=== PATIENT | male | born 2005 | race Caucasian/White ===

== ENCOUNTER 2024-11-28 12:53 | Emergency (ER) | payer OTHER, SELFPAY ==
[2024-11-28 12:58] VITALS: BP 142/94; PULSE 60; RESP 18; TEMP 36.8; O2SAT 99; BMI 24.1
--- NOTE | 2024-11-28 13:07 | HMH.EDGENADL ---
Discharge Plan Disposition Patient Disposition: Home, Self-Care Condition: Good Prescriptions Prescriptions: No Action No Known Home Medications Referrals Follow up/Referrals: Provider,Referral, MD [Primary Care Provider] - See instructions Activity Restrictions/Add. Instructions Additional Instructions/Restrictions: You may wash your sutures with soap and water and pat dry. The sutures can come out in 5 days. You can return to the [facility] PCP or the ER for suture removal. If you have increasing redness drainage pain return to the ER for evaluation. Clinical Impressions Clinical Impression: Facial laceration Qualifiers: Encounter type: initial encounter Qualified Code(s): S01.81XA - Laceration without foreign body of other part of head, initial encounter Instructions Patient Instructions: DI for Laceration Repair Print Language Print Language: Belarusian Discharge ED Provider: Avery Dixon General Adult HPI <ANTWON Uriostegui - Last Filed: 11/28/24 21:00> General Chief complaint: Wound/Laceration Stated complaint: AO 11/28 1224 fall hit head/face nose bleed holman Time Seen by Provider: 11/28/24 13:07 Mode of Arrival: Ambulatory Source of Information: Patient Limitations: No Limitations Description of Symptoms (Recalled from ER Triage Doc. by RN): Pt states he fell at home when dancing for his performance when he tripped and hit his nose on the corner of the dresser. Pt has a small laceration to his nose. History of Present Illness HPI narrative: Patient presents for evaluation of a fall and facial trauma. Patient was practicing for a dance performance and tripped falling into the edge of a dresser. He struck himself across the bridge of his nose. He did not lose consciousness did not fall and denies any other injury. He suffered a laceration across the bridge of his nose and reports that he is congested since but denies any epistaxis change in vision headache cervical spine tenderness chest pain shortness of breath fever chills hemoptysis hematochezia melena nausea vomit diarrhea. Related Data Home Medications ?Medication ?Instructions ?Recorded ?Confirmed No Known Home Medications 11/28/24 11/28/24 Allergies Allergy/AdvReac Type Severity Reaction Status Date / Time No Known Allergies Allergy Verified 04/12/18 22:38 PFSH <ANTWON Uriostegui - Last Filed: 11/28/24 21:00> [facility] Disclaimer: The information contained in this section may have been updated after the patient was seen, as this information can be updated by other users. Social History (Updated 11/28/24 @ 21:00 by ANTWON Uriostegui) Smoking Status: Current every day smoker alcohol intake: never current occupational status: unemployed Travel in the last 8 weeks: None Have you lived/traveled outside [place] in past 30 days?: No Contact w/someone who lives/traveled outside [place] past 30 days?: No Exposure to someone with infectious disease in past 14 days?: No Do you have a fever (greater than 100.4 F or 38 C)?: No Have you tested positive for COVID-19: No Exposed to someone with COVID-19 in past 14 days?: No Do you have a sore throat?: No Do you have a cough?: No Do you have any weakness?: No Do you have any diarrhea?: No Are you experiencing any unusual bleeding?: No Do you have any muscle aches/pain?: No Do you have any abdominal pain?: No Are you experiencing loss of taste or smell?: No <ANTWON Uriostegui - Last Filed: 11/28/24 21:00> ROS Obtained: Yes Systems reviewed as appropriate & no additional complaints except as documented Physical Exam <ANTWON Uriostegui - Last Filed: 11/28/24 21:00> General General appearance: alert and in no apparent distress Neck Neck exam: Present lymphadenopathy Respiratory Respiratory exam: Present normal lung sounds bilaterally Cardiovascular Cardiovascular exam: Present regular rate Neurological Exam Neurological exam: Present alert and oriented X3 Medical Decision Making <ANTWON Uriostegui - Last Filed: 11/28/24 21:00> Medical Records Screening: Per USPSTF and CDC recommendations, given the prevalence of disease in our region, it is our hospital?s policy to screen for HIV and viral Hepatitis for all patients aged 18 and over and those with ongoing risk factors. Yunior Inquiry Pt receiving controlled substance: No Vital Signs: 11/28/24 12:58 11/28/24 15:11 Temperature 98.3 F 98.3 F Temperature Source Oral Oral Pulse Rate 66 Pulse Rate [Right] 60 Respiratory Rate 18 18 Blood Pressure 136/72 Blood Pressure [Right Arm] 142/94 H Blood Pressure Mean [Right Arm] 110 Blood Pressure Source Automatic Cuff Blood Pressure Source [Right Arm] Automatic Cuff Blood Pressure Position Sitting Blood Pressure Position [Right Arm] Sitting 02 Sat by Pulse Oximetry 99 Oxygen Delivery Method Room Air Room Air Orders (Tests/Meds): ED MEDICATIONS Discontinued Medications Generic Name Dose Route Start Last Admin Trade Name Matthew PRN Reason Stop Dose Admin Acetaminophen 1,000 mg 11/28/24 13:10 11/28/24 13:22 Acetaminophen 500mg Tab PO 11/28/24 13:11 1,000 mg ONCE ONE Administration Lidocaine HCl 10 ml 11/28/24 13:10 11/28/24 13:23 Lidocaine 1% 10ml Mdv SUBCUT 11/28/24 13:11 10 ml ONCE ONE Administration Oxycodone HCl 5 mg 11/28/24 13:10 11/28/24 13:22 Oxycodone 5mg Immediate Release Tablet PO 11/28/24 13:11 5 mg ONCE ONE Administration ORDERS Category Date Time Status CT cervical spine wo con Stat Cat Scan 11/28/24 13:[address] facial bones wo con Stat Cat Scan 11/28/24 13:[address] head/brain wo con Stat Cat Scan 11/28/24 13:10 Completed Medical Decision Narrative: In summary patient is a 20-year-old male who presents to the emergency department for evaluation of serration to the bridge of his nose and facial trauma. Patient is hemodynamically stable upon arrival, afebrile. Physical exam is remarkable for a complex laceration over the bridge of his nose however there is no palpable bony deformity, pupils equal round reactive to light, there is no pain with extraocular movements and extract movements are intact, patient has no cervical spine tenderness, midface is stable, there is no epistaxis or hematoma in the nares.. Differential diagnosis includes but laceration versus facial fracture versus head injury versus C-spine injury etc. Initial workup will be conducted with noncontrasted studies of the head C-spine and face. Initial interventions include Tylenol ibuprofen. Initial workup reviewed by me and his imaging informal interpretation by me shows no acute bony fracture or intracranial problem prior to radiology read. Please see their report for full final read.. Given this patient had his complex laceration repaired by myself with nine 6.0 nylon interrupted sutures with good skin approximation and hemostasis. Patient given wound care instructions by myself and sutures need to come out in 5 days and he was given strict return precautions <Avery Dixon MD - Last Filed: 11/29/24 07:23> Vital Signs: 11/28/24 12:58 11/28/24 15:11 Temperature 98.3 F 98.3 F Temperature Source Oral Oral Pulse Rate 66 Pulse Rate [Right] 60 Respiratory Rate 18 18 Blood Pressure 136/72 Blood Pressure [Right Arm] 142/94 H Blood Pressure Mean [Right Arm] 110 Blood Pressure Source Automatic Cuff Blood Pressure Source [Right Arm] Automatic Cuff Blood Pressure Position Sitting Blood Pressure Position [Right Arm] Sitting 02 Sat by Pulse Oximetry 99 Oxygen Delivery Method Room Air Room Air Orders (Tests/Meds): ED MEDICATIONS Discontinued Medications Generic Name Dose Route Start Last Admin Trade Name Freq PRN Reason Stop Dose Admin Acetaminophen 1,000 mg 11/28/24 13:10 11/28/24 13:22 Acetaminophen 500mg Tab PO 11/28/24 13:11 1,000 mg ONCE ONE Administration Lidocaine HCl 10 ml 11/28/24 13:10 11/28/24 13:23 Lidocaine 1% 10ml Mdv SUBCUT 11/28/24 13:11 10 ml ONCE ONE Administration Oxycodone HCl 5 mg 11/28/24 13:10 11/28/24 13:22 Oxycodone 5mg Immediate Release Tablet PO 11/28/24 13:11 5 mg ONCE ONE Administration ORDERS Category Date Time Status CT cervical spine wo con Stat Cat Scan 11/28/24 13:[address] facial bones wo con Stat Cat Scan 11/28/24 13:[address] head/brain wo con Stat Cat Scan 11/28/24 13:10 Completed Medical Decision Narrative: In summary patient is a 20-year-old male who presents to the emergency department for evaluation of serration to the bridge of his nose and facial trauma. Patient is hemodynamically stable upon arrival, afebrile. Physical exam is remarkable for a complex laceration over the bridge of his nose however there is no palpable bony deformity, pupils equal round reactive to light, there is no pain with extraocular movements and extract movements are intact, patient has no cervical spine tenderness, midface is stable, there is no epistaxis or hematoma in the nares.. Differential diagnosis includes but laceration versus facial fracture versus head injury versus C-spine injury etc. Initial workup will be conducted with noncontrasted studies of the head C-spine and face. Initial interventions include Tylenol ibuprofen. Initial workup reviewed by me and his imaging informal interpretation by me shows no acute bony fracture or intracranial problem prior to radiology read. Please see their report for full final read.. Given this patient had his complex laceration repaired by myself with nine 6.0 nylon interrupted sutures with good skin approximation and hemostasis. Patient given wound care instructions by myself and sutures need to come out in 5 days and he was given strict return precautions I was consulted by the GEOFF, and we discussed the complexity of the problems being addressed. I approved the treatment and management plan for this patient's care in the Emergency Department, thus performing a substantive portion of the medical decision making. Avery Dixon MD Procedures <ANTWON Uriostegui - Last Filed: 11/28/24 21:00> Laceration Laceration 1: Site: face Size (cm): 3.5 Description: irregular Depth: simple, single layer Local Anesthetic: lidocaine 1% and with epi Amount of anesthesia used (mL): 10 Pre-repair: wound explored, irrigated extensively and deep structures intact Skin layer closed with: nylon Size (cm): 6-0 Number of sutures: 9 Technique: simple, interrupted Critical Care <ANTWON Uriostegui - Last Filed: 11/28/24 21:00> Critical Care Time Critical Care Time: No
--- NOTE | 2024-11-28 13:10 | CT_ITS ---
FINAL REPORT TECHNIQUE: Thin section axial images were obtained through the face without contrast. Coronal reconstruction images are obtained from the axial data. Exam was performed using dose reduction techniques such as automated exposure control, adjustment of the mA and kV according to patient size, and use of iterative reconstruction technique. CLINICAL HISTORY: Fall facial trauma FINDINGS: There is no acute facial bone fracture. There is mucoperiosteal thickening in the left sphenoid sinus. There is no air-fluid level. Remaining paranasal sinuses are clear. The orbital rims are intact. No significant nasal septal deviation is identified. Remaining soft tissues are within normal limits. IMPRESSION: No acute facial fracture. Sphenoid sinusitis is likely chronic. Reviewed, Interpreted and Dictated by Charmaine Middleton MD Transcribed by Vaishnavi Suarez Authenticated and [facility]
--- NOTE | 2024-11-28 13:10 | CT_ITS ---
FINAL REPORT TECHNIQUE: Thin section axial images were obtained through the cervical spine without contrast. Multiplanar reconstruction images were obtained from the axial data. Exam was performed using dose reduction techniques. CLINICAL HISTORY: Fall facial trauma FINDINGS: There is no acute fracture or acute malalignment of the cervical spine. There is no evidence of unilateral or bilateral facet lock. Vertebral body height is preserved. There is no central canal stenosis or significant degenerative disc disease. No acute paraspinal abnormality is identified. IMPRESSION: No acute osseous abnormality of the cervical spine. Reviewed, Interpreted and Dictated by Charmaine Middleton MD Transcribed by Vaishnavi Suarez Authenticated and [facility]
--- NOTE | 2024-11-28 13:10 | CT_ITS ---
FINAL REPORT TECHNIQUE: Thin section axial images were obtained from skull base to vertex without contrast. Coronal reconstruction images were obtained from the axial data. Exam was performed using dose reduction techniques such as automated exposure control, adjustment of the mA and kV according to patient size, and use of iterative reconstruction technique. CLINICAL HISTORY: Fall facial trauma FINDINGS: There is no mass effect or midline shift. There is no hydrocephalus. There is no intracranial hemorrhage. The posterior fossa is without acute abnormality. The basilar cisterns are preserved. The soft tissues are without acute abnormality. No acute osseous abnormality is identified. IMPRESSION: No acute intracranial abnormality. Reviewed, Interpreted and Dictated by Charmaine Middleton MD Transcribed by Vaishnavi Suarez Authenticated and [facility]
[2024-11-28] MEDS: ACETAMINOPHEN 500MG TAB 1000 MG PO (13:22)
[2024-11-28] MEDS: OXYCODONE 5MG IMMEDIATE RELEASE TABLET 5 MG PO (13:22)
[2024-11-28] MEDS: LIDOCAINE 1% 10ML MDV 10 ML SUBCUT (13:23)
[2024-11-28 15:11] VITALS: BP 136/72; PULSE 66; RESP 18; TEMP 36.8; O2SAT 99
== END 2024-11-28 15:12 | disposition home or self-care (01) ==
PROVIDERS: Emergency Provider Emergency Medicine
DX: S01.81XA Laceration without foreign body of other part of head, initial encounter (principal); R51.9 Headache, unspecified; R04.0 Epistaxis; R09.81 Nasal congestion; Z72.0 Tobacco use; W01.190A Fall on same level from slipping, tripping and stumbling with subsequent striking against furniture, initial encounter; Y93.89 Activity, other specified; Y92.9 Unspecified place or not applicable
CPT/HCPCS: 12013; 70450; 70486; 72125; 99284